=== PATIENT | female | born 2000 | race Two or more races ===

== ENCOUNTER 2025-02-01 13:38 | Inpatient (IN) | payer OTHER ==
[~2025-02-01] VITALS: Ht 157.5 cm; Wt 84.4 kg
[2025-02-03] VITALS (9 sets, daily range): BP systolic 83–133; BP diastolic 54–84; O2SAT 100
[2025-02-03] MEDS ORDERED: RINGERS SOLUTION,LACTATED 1,000 ML IV SCH (08:00)
[2025-02-03] MEDS ORDERED: AMPICILLIN SODIUM 2,000 MG VIAL IV ONE (08:00)
[2025-02-03] MEDS ORDERED: OXYTOCIN 500 ML IV SCH (08:30)
[2025-02-03 09:20] LABS: URINE APPEARANCE Clear; URINE BILIRRUBIN Negative (NEGATIVE); URINE BLOOD Moderate; URINE COLOR Yellow; URINE GLUCOSE Negative (NEGATIVE); URINE KETONE Negative (NEGATIVE); URINE LEUKOCYTE Negative; URINE NITRATE Negative; URINE PROTEIN 30 (NEGATIVE); URINE UROBILINOGEN 0.2 E.U./dl
[2025-02-03 09:23] LABS: URINE BACTERIA 1536.0 uL (0.0-1933); URINE EPITHELIAL CELLS 28.3 uL (0.0-38.8); URINE RBC 3.3 uL (0.0-20.8); URINE WBC 12.4 uL (0.0-23.2)
[2025-02-03 09:30] LABS: BASO % 0.3 % (0.1-1.2); EOS # 0.05 (0.04-0.54); EOS % 0.4 % (0.7-7.0); LYMPH # 2.00 (1.18-3.74); LYMPH % 16.4 % (19.3-53.1); MEAN PLATELET VOLUME 10.50 fl (9.4-12.4); MONO # 0.97 (0.24-0.82); MONO % 7.9 % (4.7-12.5); NEUT # 9.13 (1.56-6.13); NEUT % 74.7 % (34.0-71.1); RED CELL DISTRIBUTION WIDTH 12.2 % (11.6-14.4)
[2025-02-03 09:53] LABS: ALT/SGPT 22.0 U/L (12-78); AST/SGOT 26.0 U/L (15-37); BILIRUBIN TOTAL 0.6 mg/dL (0.3-1.2); BUN CREA RATIO 25.0 (7.0-25.0); CREATININE SERUM 0.63 mg/dL (0.55-1.02); GFR 118.16; GLOBULINA 3.6 G/DL (2.4-3.5); GLUCOSE FASTING 78.0 mg/dL (65-100); OSMOLALITY SERUM 281.0 MOSM/KG (275-295)
[2025-02-03 09:55] LABS: INR < 0.93
[2025-02-03 09:56] LABS: URINE CAST 0.43 uL (0.0-1.40)
[2025-02-03] MEDS ORDERED: AMPICILLIN SODIUM 1,000 MG VIAL IV SCH (12:00)
[2025-02-03] MEDS ORDERED: MORPHINE SULFATE 4 MG/ML CARTRIDGE IV STA (12:02)
[2025-02-03] MEDS ORDERED: ERYTHROMYCIN BASE OPHT 1GM EACH TUBE OP ONE (17:45)
[2025-02-03] MEDS ORDERED: ACETAMINOPHEN 500 MG GEL..CAP PO PRN (17:45)
[2025-02-03] MEDS ORDERED: LIDOCAINE HCL 1% 10ML VIAL IJ ONE (17:45)
[2025-02-03] MEDS ORDERED: OXYTOCIN 1,000 ML IV SCH (17:45)
[2025-02-03] MEDS ORDERED: CHLORHEXIDINE GLUCONATE 120 ML BOTTLE TOP ONE (17:45)
[2025-02-04] VITALS: BP 114/67
[2025-02-04 01:00] LABS: BASO % 0.1 % (0.1-1.2); EOS # 0.01 (0.04-0.54); EOS % 0.0 % (0.7-7.0); LYMPH # 1.70 (1.18-3.74); LYMPH % 7.8 % (19.3-53.1); MEAN PLATELET VOLUME 10.60 fl (9.4-12.4); MONO # 1.35 (0.24-0.82); MONO % 6.2 % (4.7-12.5); NEUT # 18.67 (1.56-6.13); NEUT % 85.4 % (34.0-71.1); RED CELL DISTRIBUTION WIDTH 12.2 % (11.6-14.4)
[2025-02-04 01:06] VITALS: BP 114/67
[2025-02-04 05:20] VITALS: BP 104/70
[2025-02-04] MEDS ORDERED: HYDROCORTISONE 2.5% 30 GM TUBE RECTAL SCH (09:00)
[2025-02-04] MEDS ORDERED: BENZOCAINE/MENTHOL 90 ML BOTTLE TOP SCH (09:00)
[2025-02-04 09:01] VITALS: BP 104/70
[2025-02-04 15:58] VITALS: BP 97/60
[2025-02-05 00:47] VITALS: BP 105/61
[2025-02-05 08:06] VITALS: BP 129/80
[2025-02-05] MEDS ORDERED: SALINE MIST45 ML (19:44)
[2025-02-05] MEDS ORDERED: IBUPROFEN600 MG PO (20:44)
== END 2025-02-05 13:38 | disposition home or self-care (01) | DRG 807 ==
LOC: OB/GYN 13:38 → LDR 02-03 07:44 → OB/GYN 02-03 18:18
PROVIDERS: ADMIT Specialist; ATTEND Specialist
PROC: 10E0XZZ Delivery of Products of Conception, External Approach (ICD-10-PCS; principal; 2025-02-03)
PROC: 0W8NXZZ Division of Female Perineum, External Approach (ICD-10-PCS; 2025-02-03)
PROC: 4A1HXCZ Monitoring of Products of Conception, Cardiac Rate, External Approach (ICD-10-PCS; 2025-02-03)
DX: O48.0 Post-term pregnancy (principal); O99.824 Streptococcus B carrier state complicating childbirth; Z37.0 Single live birth; Z3A.40 40 weeks gestation of pregnancy

== ENCOUNTER 2025-02-05 18:12 | Emergency (ER) | payer OTHER ==
[~2025-02-05] VITALS: Ht 157.5 cm; Wt 72.6 kg
[2025-02-05] MEDS ORDERED: KETOROLAC TROMETHAMINE 30 MG VIAL IM ONE (19:00)
[2025-02-05 19:23] LABS: BASO % 0.3 % (0.1-1.2); EOS # 0.16 (0.04-0.54); EOS % 1.2 % (0.7-7.0); LYMPH # 2.08 (1.18-3.74); LYMPH % 15.9 % (19.3-53.1); MEAN PLATELET VOLUME 9.80 fl (9.4-12.4); MONO # 0.99 (0.24-0.82); MONO % 7.6 % (4.7-12.5); NEUT # 9.79 (1.56-6.13); NEUT % 74.7 % (34.0-71.1); RED CELL DISTRIBUTION WIDTH 12.6 % (11.6-14.4)
[2025-02-05] MEDS ORDERED: SALINE MIST45 ML (19:44)
[2025-02-05 19:45] LABS: URINE APPEARANCE Clear; URINE BACTERIA 14.3 uL (0.0-1933); URINE BILIRRUBIN Negative (NEGATIVE); URINE BLOOD Large; URINE COLOR Yellow; URINE EPITHELIAL CELLS 15.2 uL (0.0-38.8); URINE GLUCOSE Negative (NEGATIVE); URINE KETONE Negative (NEGATIVE); URINE LEUKOCYTE Trace; URINE NITRATE Negative; URINE PROTEIN Trace (NEGATIVE); URINE RBC 745.7 uL (0.0-20.8); URINE UROBILINOGEN 1.0 E.U./dl; URINE WBC 30.8 uL (0.0-23.2)
[2025-02-05 19:48] LABS: URINE CAST 0.43 uL (0.0-1.40)
[2025-02-05 19:56] LABS: ALT/SGPT 25.0 U/L (12-78); AST/SGOT 43.0 U/L (15-37); BILIRUBIN TOTAL 0.37 mg/dL (0.3-1.2); BUN CREA RATIO 17.0 (7.0-25.0); CREATININE SERUM 0.88 mg/dL (0.55-1.02); GFR 80.35; GLOBULINA 3.5 G/DL (2.4-3.5); GLUCOSE FASTING 89.0 mg/dL (65-100); OSMOLALITY SERUM 289.0 MOSM/KG (275-295)
[2025-02-05] MEDS ORDERED: IBUPROFEN600 MG PO (20:44)
== END 2025-02-05 20:58 | disposition home or self-care (01) ==
LOC: ER 18:12
PROVIDERS: Preventive Medicine Public Health & General Preventive Medicine
DX: O90.89 Other complications of the puerperium, not elsewhere classified (principal); R10.22 Pelvic and perineal pain left side